=== PATIENT | female | born 1955 | race Caucasian/White ===

== ENCOUNTER 2016-09-08 09:15 | Outpatient (RCR) | payer OTHER | END 2016-09-13 | LOC: M PT 09:15 | PROVIDERS: ATTEND Surgery | DX: Z51.89 Encounter for other specified aftercare (principal); C50.911 Malignant neoplasm of unspecified site of right female breast ==

== ENCOUNTER → 2016-11-29 | Outpatient (CLI) | payer OTHER ==
--- NOTE | 2016-11-30 07:50 | RADONC ---
RADIATION ONCOLOGY CONSULTATION NOTE DATE: 11/29/2016 CHART NUMBER: [id number]. DIAGNOSIS: Right breast cancer. STAGE: IIB, [id number] ECOG PERFORMANCE STATUS: Zero. CONSULTATION NOTE: Ms. Carl is a very pleasant, 61-year-old white female with the diagnosis of a stage IIB, [id number] poorly differentiated invasive ductal carcinoma of the right breast who is presenting to us today status post lumpectomy, sentinel lymph node biopsy and chemotherapy consisting docetaxel and cyclophosphamide for consideration of postoperative radiation therapy in attempt to increase the likelihood of achieving local control and cure. HISTORY OF PRESENT ILLNESS: The patient was in her usual state of health until she noticed some dimpling over her right breast. She underwent a mammogram, which was done on 07/04/2016 and showed some architectural distortion in the right retroareolar region in the 12 o'clock position. On 07/22/2016, the patient underwent radiologically guided biopsy of her right breast mass and pathology revealed a moderately differentiated invasive ductal carcinoma. The tumor was estrogen receptor and progesterone receptor positive and HER2 negative. On 08/31/2016, the patient underwent lumpectomy and sentinel lymph node biopsy. Pathology revealed a 3 cm poorly differentiated invasive ductal carcinoma. Multiple areas were positive for lymph vascular invasion. Lymph vascular invasion was actually present at the lateral and superior margins and immediately adjacent to the deep and superficial margins. Two lymph nodes were sampled and one was positive for metastatic disease. The tumor measured 4 mm in greatest extension. There was no extranodal extension seen. Following resection, the patient underwent chemotherapy consisting of docetaxel and cyclophosphamide. Her last chemotherapy was yesterday and she is now presenting for discussion of postoperative radiation therapy. PAST MEDICAL HISTORY: The patient's past medical history is positive for hypertension. ALLERGIES: The patient is allergic to SULFA DRUGS. SOCIAL HISTORY: The patient had smoked one pack of cigarettes per day for 15 years. She quit in 1989. She drinks alcohol socially. FAMILY HISTORY: The patient's family history is positive for an older sister with breast cancer and a grandmother with breast cancer. REVIEW OF SYSTEMS: The patient's review of systems is noncontributory. Denies nausea, vomiting, fevers, chills, night sweats, diplopia, headaches, anxiety or depression, anorexia, weight loss, visual disturbances, chest pain, urinary or bowel difficulties, bone pain, or neurological problems. PHYSICAL EXAMINATION: The patient is a well-developed, well-nourished, 61-year-old female, in no acute distress. HEENT exam is normocephalic, atraumatic. Extraocular movements are intact. There is no palpable cervical, supraclavicular, infraclavicular, axillary, or inguinal lymphadenopathy present. Lungs are clear to auscultation and percussion. Heart has a regular rate and rhythm. Abdomen is benign with no hepatosplenomegaly, masses, or tenderness. Breast examination reveals no masses or discharge bilaterally. Skeletal examination reveals no tenderness to pressure or percussion of the bony skeleton. Extremities reveal no clubbing, cyanosis, or edema. Neurologic exam is grossly intact, as is the remainder of the physical examination. ASSESSMENT: Clearly the patient is a candidate for external beam radiation therapy and I have so informed her. I have discussed with the patient in detail the potential benefits as well as possible acute and chronic sequelae of external beam radiation therapy. We discussed logistics of treatment planning, simulation and subsequent fractionated daily radiation treatments. I have scheduled the patient for the next available simulation slot and radiation treatments will begin subsequently. Thank you for allowing us to participate in the care of this very pleasant woman and if I could be of any further assistance or provide you with any information, please free to contact me anytime. cc: MD Sam Bartlett Jr, MD *Candice Chicas MD
== END ==
LOC: M ONCR 10:03
PROVIDERS: ATTEND Radiology Radiation Oncology
DX: C50.911 Malignant neoplasm of unspecified site of right female breast (principal)

== ENCOUNTER 2016-12-07 08:37 | Outpatient (RCR) | payer OTHER ==
--- NOTE | 2016-12-07 10:42 | RADONC ---
RADIATION ONCOLOGY SIMULATION NOTE DATE: 12/07/2016 CHART NUMBER: [id number] Ms. Carl was taken to the CT scan for CT simulation of her right breast field. CT was accomplished without difficulty or discomfort. Radiation treatment planning is underway and radiation treatments will begin subsequently. An immobilization device was created without difficulty or discomfort. It will be used throughout the course of treatment. I was physically present throughout the course of CT simulation.
== END 2016-12-11 ==
LOC: M ONCR 08:37
PROVIDERS: ATTEND Radiology Radiation Oncology
DX: C50.811 Malignant neoplasm of overlapping sites of right female breast (principal)

== ENCOUNTER → 2016-12-07 | Outpatient (CLI) | payer OTHER | LOC: M RAD 08:31 | PROVIDERS: ATTEND Radiology Radiation Oncology | DX: C50.919 Malignant neoplasm of unspecified site of unspecified female breast (principal) ==

== ENCOUNTER 2016-12-12 14:11 | Outpatient (RCR) | payer OTHER ==
--- NOTE | 2016-12-20 08:32 | RADONC ---
RADIATION ONCOLOGY PROGRESS NOTE: DATE: 12/19/2016 CHART NO: [id number] Ms. Carl is presently at a dose of 540 cGy to her right breast and is tolerating treatments quite well at this point with no complaints related to her radiation therapy. She has no breast or bone pain. REVIEW OF SYSTEMS: The patient's review of systems is noncontributory. Denies nausea, vomiting, fevers, chills, night sweats, diplopia, headaches, anxiety or depression, anorexia, weight loss, visual disturbances, chest pain, urinary or bowel difficulties, bone pain, or neurological problems. PHYSICAL EXAMINATION: The patient's skin is in good condition with no evidence of radiation change present. There is no moist or dry desquamation. The remainder of her physical exam remains unchanged. Ms. Carl is tolerating treatments quite well and radiation will continue as scheduled.
--- NOTE | 2016-12-27 10:14 | RADONC ---
RADIATION ONCOLOGY PROGRESS NOTE DATE: 12/26/2016 CHART NUMBER: [id number] Ms. Carl is presently at a dose of 1440 cGy to her right breast and is tolerating treatments quite well at this point with no complaints related to her radiation therapy. She has had no breast or bone pain. REVIEW OF SYSTEMS: The patient's review of systems is noncontributory. She denies nausea, vomiting, fevers, chills, night sweats, diplopia, headaches, anxiety or depression, anorexia, weight loss, visual disturbances, chest pain, urinary or bowel difficulties, bone pain, or neurological problems. PHYSICAL EXAMINATION: The patient's skin is in excellent condition with no evidence of moist or dry desquamation. The remainder of her physical exam remains unchanged. Ms. Carl is tolerating treatments quite well and radiation will continue as scheduled.
--- NOTE | 2017-01-03 07:54 | RADONC ---
RADIATION ONCOLOGY PROGRESS NOTE: DATE: 01/02/2017 CHART NO: [id number] Ms. Carl is presently at a dose of 2340 cGy to her right breast and is tolerating treatments quite well at this point with no complaints related to her radiation therapy. She is having no breast or bone pain. REVIEW OF SYSTEMS: The patient's review of systems is noncontributory. Denies nausea, vomiting, fevers, chills, night sweats, diplopia, headaches, anxiety or depression, anorexia, weight loss, visual disturbances, chest pain, urinary or bowel difficulties, bone pain, or neurological problems. PHYSICAL EXAMINATION: The patient's skin is in excellent condition with no evidence of moist or dry desquamation. The remainder of her physical exam remains unchanged. Ms. Carl is tolerating treatments quite well and radiation will continue as scheduled.
--- NOTE | 2017-01-11 08:16 | RADONC ---
RADIATION ONCOLOGY PROGRESS NOTE DATE: 01/10/2017 CHART NUMBER: Ms. Carl is presently at a dose of 3240 cGy to her right breast and is tolerating treatments quite well at this point with no complaints related to radiation therapy. She has no breast or bone pain. The patient's review of systems is noncontributory. She denies nausea, vomiting, fevers, chills, night sweats, diplopia, headaches, anxiety or depression, anorexia, weight loss, visual disturbances, chest pain, urinary or bowel difficulties, bone pain, or neurological problems. PHYSICAL EXAMINATION: Patient's skin is in good condition with no evidence of moist or dry desquamation. There is just some minimal erythema present. The remainder of her physical exam is unchanged. Of note, the patient shows a new mole which has appeared in the irradiated field. She does not remember having that prior to radiation. On physical exam, it does not look concerning, but we will continue to follow it. I suspect it is secondary to the radiation.
== END 2017-01-11 ==
LOC: M ONCR 14:11
PROVIDERS: ATTEND Radiology Radiation Oncology
DX: C50.811 Malignant neoplasm of overlapping sites of right female breast (principal)

== ENCOUNTER 2017-01-12 11:05 | Outpatient (RCR) | payer OTHER ==
--- NOTE | 2017-01-18 09:49 | RADONC ---
RADIATION ONCOLOGY PROGRESS NOTE DATE: 01/17/2017 CHART NUMBER: [id number] Ms. Carl is presently at a dose of 4140 cGy to her right breast and is tolerating treatments quite well at this point with no complaints related to her radiation therapy. She is having no significant breast or bone pain. REVIEW OF SYSTEMS: The patient's review of systems is noncontributory. She denies nausea, vomiting, fevers, chills, night sweats, diplopia, headaches, anxiety or depression, anorexia, weight loss, visual disturbances, chest pain, urinary or bowel difficulties, bone pain, or neurological problems. PHYSICAL EXAMINATION: The patient's skin is in excellent condition with no evidence of moist or dry desquamation. The remainder of her physical exam remains unchanged. Ms. Carl is tolerating treatments quite well and radiation will continue as scheduled.
--- NOTE | 2017-01-18 09:54 | RADONC ---
RADIATION ONCOLOGY SIMULATION NOTE DATE: 01/17/2017 CHART NUMBER: [id number] Ms. Carl was taken to the linear accelerator for clinical setup of her electron beam boost field. Setup was accomplished without difficulty or discomfort. Radiation treatment planning is underway and radiation treatments will begin subsequently. An immobilization device will be used throughout the course of treatment. I was physically present throughout the course of electron setup simulation.
--- NOTE | 2017-01-24 10:03 | RADONC ---
RADIATION ONCOLOGY PROGRESS NOTE DATE: 01/23/2017 CHART NUMBER: [id number] Ms. Carl is presently at a dose of 4860 centigrade to her right breast and is tolerating treatments quite well at this point with no complaints related to her radiation therapy. She is having no breast or bone pain. REVIEW OF SYSTEMS: The patient's review of systems is noncontributory. Denies nausea, vomiting, fevers, chills, night sweats, diplopia, headaches, anxiety or depression, anorexia, weight loss, visual disturbances, chest pain, urinary or bowel difficulties, bone pain, or neurological problems. PHYSICAL EXAMINATION: The patient's skin is in good condition with no moist or dry desquamation. The remainder of her physical exam remains unchanged. Ms. Carl is tolerating treatments quite well and radiation will continue as scheduled.
--- NOTE | 2017-01-31 08:48 | RADONC ---
RADIATION ONCOLOGY PROGRESS NOTE: DATE: 01/30/2017 CHART NUMBER: [id number] Ms Carl is presently at a dose of 5860 cGy to her right breast primary site boost and is tolerating treatments quite well at this point with no complaints related to her radiation therapy. She is having no breast or bone pain. REVIEW OF SYSTEMS: The patient's review of systems is noncontributory. Denies nausea, vomiting, fevers, chills, night sweats, diplopia, headaches, anxiety or depression, anorexia, weight loss, visual disturbances, chest pain, urinary or bowel difficulties, bone pain, or neurological problems. PHYSICAL EXAMINATION: The patient's skin is in good condition with no evidence of moist or dry desquamation. The remainder of her physical exam remains unchanged. Ms. Carl is tolerating treatments quite well and radiation will continue as scheduled.
--- NOTE | 2017-02-01 10:16 | RADONC ---
RADIATION ONCOLOGY TREATMENT SUMMARY: DATE: 01/31/2017 CHART NUMBER: [id number]. DIAGNOSIS: Right breast cancer. STAGE: IIIB, [id number]. ECOG PERFORMANCE STATUS: Zero. TREATMENT SUMMARY: Ms. Carl is a 61-year-old white female with the diagnosis of a stage IIB, [id number] poorly differentiated invasive ductal carcinoma of the right breast who presented to us status post lumpectomy, sentinel lymph node biopsy and chemotherapy consisting of docetaxel and cyclophosphamide for consideration of postoperative radiation therapy for conservative breast management. We treated the patient to the right breast for a total dose of 4860 cGy delivered in 27 fractions of 180 cGy each over 39 elapsed days, from 12/15/2016 through 01/23/2017. The patient's right breast was treated on a linear accelerator utilizing a 6MV photon beam via medial and lateral tangential yanes utilizing a 3-D technique. Following completion of 4860 cGy of the entire right breast, the primary site was boosted for an additional 1200 cGy delivered in 6 fractions of 200 cGy each, from 01/24/2017 through 01/31/2017. The primary site boost was treated on a linear accelerator utilizing a 12MEV electron beam prescribed to the 90% isodose line via non phos technique. This brought the primary site to a total dose of 6060 cGy delivered in 33 fractions over 47 elapsed days, from 12/15/2016 through 01/31/2017. Ms. Carl tolerated her treatments quite well and was able to complete therapy as prescribed without interruption. I have scheduled the patient to see me again in 1 month for further followup. She will also continue to be followed by her other physicians as well. Thank you for allowing us to participate in the care of this very pleasant woman. If I could be of any further assistance or provide you any information, please free to contact me anytime. As always, warm regards. cc: MD Sam Bartlett Jr, MD Kara Kort, MD
== END 2017-02-10 ==
LOC: M ONCR 11:05
PROVIDERS: ATTEND Radiology Radiation Oncology
DX: C50.811 Malignant neoplasm of overlapping sites of right female breast (principal)

== ENCOUNTER → 2017-03-01 | Outpatient (CLI) | payer OTHER ==
--- NOTE | 2017-03-01 09:25 | RADONC ---
RADIATION ONCOLOGY FOLLOWUP NOTE: DATE: 03/01/2017 CHART NUMBER: [id number] DIAGNOSIS: Right breast cancer. STAGE: III B, [id number] ECOG PERFORMANCE STATUS: 0 Ms. Carl is a very pleasant 61-year-old white female with the diagnosis of a stage III B, [id number] poorly differentiated invasive ductal carcinoma of the right breast who is presenting to us today for routine followup visit 1 month post completion of external beam radiation therapy. The patient presents today reporting that she is doing quite well with no complaints at this time related to her radiation therapy or disease. She has no breast or bone pain. REVIEW OF SYSTEMS: The patient's review of systems is noncontributory. She denies nausea, vomiting, fevers, chills, night sweats, diplopia, headaches, anxiety or depression, anorexia, weight loss, visual disturbances, chest pain, urinary or bowel difficulties, bone pain, or neurological problems. PHYSICAL EXAMINATION: The patient is a well-developed, well-nourished female in no acute distress. HEENT exam is normocephalic, atraumatic. Extraocular movements are intact. There is no palpable cervical, supraclavicular, infraclavicular, axillary, or inguinal lymphadenopathy present. Lungs are clear to auscultation and percussion. Heart has a regular rate and rhythm. Abdomen is benign with no hepatosplenomegaly, masses, or tenderness. Breast examination reveals no masses or discharge bilaterally. Skeletal examination reveals no tenderness to pressure or percussion of the bony skeleton. Extremities reveal no clubbing, cyanosis, or edema. Neurologic exam is grossly intact, as is the remainder of the physical examination. ASSESSMENT: The patient is clinically MAICOL at this time and will be seen by us again in 6 months for further followup. She will also continue to be followed by her other physicians as well. cc: MD Sam Bartlett Jr, MD Kara Kort, MD
== END ==
LOC: M ONCR 09:00
PROVIDERS: ATTEND Radiology Radiation Oncology
DX: C50.811 Malignant neoplasm of overlapping sites of right female breast (principal)

== ENCOUNTER → 2017-08-23 | Outpatient (CLI) | payer OTHER | LOC: M ONCR 09:16 | DX: C50.811 Malignant neoplasm of overlapping sites of right female breast (principal) ==

== ENCOUNTER → 2017-09-08 | Outpatient (REF) | payer OTHER | LOC: M SFHCWAGY 08:40 | DX: Z12.4 Encounter for screening for malignant neoplasm of cervix (principal); N95.2 Postmenopausal atrophic vaginitis | CPT/HCPCS: G0123 ==

== ENCOUNTER → 2018-02-28 | Outpatient (CLI) | payer OTHER | LOC: M ONCR 09:28 | DX: C50.811 Malignant neoplasm of overlapping sites of right female breast (principal) ==

== ENCOUNTER → 2018-09-25 | Outpatient (CLI) | payer OTHER ==
[~2018-09-25] MED LIST: CALCTAB44 PO; HYDR25TAB PO; LETR2.5T2 PO; TURM500C PO
--- NOTE | 2018-10-01 10:51 | SLEEPCENT ---
DATE OF PROCEDURE: 09/25/2018 ORDERED BY: Eliazar Gandara Nocturnal polysomnography was performed for the titration of pressure therapy in this patient with obstructive sleep apnea syndrome and apnea-hypopnea of 23.5. For testing, a ResMed AirFit N20 nasal mask of small size was used and 4 cm of water pressure were applied to the circuit and the lights were extinguished. 7 hours and 29 minutes of data were reviewed. There were 354 minutes of sleep identified. Sleep latency was prolonged at 28 minutes. Rapid eye movement (REM) latency was prolonged at 160 minutes. Sleep architecture improved with optimal pressure therapy. Overall sleep efficiency was 79%. The patient's electrocardiogram showed a sinus rhythm with an average heart rate of 66 beats per minute. Electroencephalogram (EEG) showed normal waveforms for awake and sleep. Respiratory events were fully palliated with C-PAP at a pressure of +9. The remaining measures of sleep physiology were normal. IMPRESSION: Obstructive sleep apnea syndrome (G47.33). RECOMMENDATION: Nightly use of pressure therapy at 9 cm of water.
== END ==
LOC: M SLEEP 19:41
PROVIDERS: ATTEND Physician Assistant
DX: G47.33 Obstructive sleep apnea (adult) (pediatric) (principal)

== ENCOUNTER 2019-08-19 09:44 | Day surgery (SDC) | payer OTHER ==
[~2019-08-19] VITALS: Ht 175.3 cm; Wt 75.3 kg
[~2019-08-19 09:44] MED LIST changes: +CALC1TAB82 PO; -CALCTAB44 PO; +NS 1,000 ML IV ONE
[2019-08-19] MEDS ORDERED: LIDOCAINE 2% INJ 100 MG/5 ML SDV (FOR ANES.) As Ordered ONE (10:57)
[2019-08-19] MEDS ORDERED: PROPOFOL 200 MG/20 ML VIAL As Ordered ONE ×2 (10:57→11:42)
--- NOTE | 2019-08-19 11:17 | ROOR ---
Patient Name: Kinza Carl Procedure Date: 08/19/2019 10:57 AM Date of : 1955 Age: 64 Room: [facility] Gender: Female Note Status: Finalized Procedure: Total Colonoscopy to Cecum Indications: Screening for colorectal malignant neoplasm Providers: Jayme Rubi MD Referring MD: NERI WEINBERG JR, MD Requesting Provider: Medicines: Monitored Anesthesia Care Complications: No immediate complications. Procedure: Pre-Anesthesia Assessment: - The heart rate, respiratory rate, oxygen saturations, blood pressure, adequacy of pulmonary ventilation, and response to care were monitored throughout the procedure. The Colonoscope was introduced through the anus and advanced to the cecum, identified by appendiceal orifice and ileocecal valve. The colonoscopy was performed without difficulty. The patient tolerated the procedure well. The quality of the bowel preparation was excellent. Findings: The perianal and digital rectal examinations were normal. Non-bleeding internal hemorrhoids were found during retroflexion. The hemorrhoids were small and Grade I (internal hemorrhoids that do not prolapse). Multiple small and large-mouthed diverticula were found in the recto-sigmoid colon, sigmoid colon and descending colon. The exam was otherwise without abnormality on direct and retroflexion views. The exam was otherwise without abnormality. Impression: - Non-bleeding internal hemorrhoids. - Diverticulosis in the recto-sigmoid colon, in the sigmoid colon and in the descending colon. - The examination was otherwise normal on direct and retroflexion views. - The examination was otherwise normal. - No specimens collected. - The exam was otherwise normal to the cecum. Recommendation: - Patient has a contact number available for emergencies. The signs and symptoms of potential delayed complications were discussed with the patient. Return to normal activities tomorrow. Written discharge instructions were provided to the patient. - High fiber diet. - Discharge patient to home. - Continue present medications. - Repeat colonoscopy in 10 years for screening purposes. - Return to referring physician. - The findings and recommendations were discussed with the patient's family. Jayme Rubi MD Jayme Rubi MD 08/19/2019 11:17:31 AM Electronically signed by Jayme Rubi MD Number of Addenda: 0 Note Initiated On: 08/19/2019 10:57 AM Estimated Blood Loss: Estimated blood loss: none.
[2019-08-19 11:35] VITALS: BP 142/82
== END 2019-08-19 11:51 | disposition home or self-care (01) ==
LOC: M OPP 09:44
PROVIDERS: ATTEND Internal Medicine Gastroenterology
DX: Z12.11 Encounter for screening for malignant neoplasm of colon (principal); K64.0 First degree hemorrhoids; K57.30 Diverticulosis of large intestine without perforation or abscess without bleeding; E73.9 Lactose intolerance, unspecified; Z79.899 Other long term (current) drug therapy; Z88.2 Allergy status to sulfonamides

== ENCOUNTER → 2021-01-05 | Outpatient (REF) | payer MEDICARE, OTHER ==
[~2021-01-05] MED LIST changes: +CALC-234 PO; -CALC1TAB82 PO; +FOLGTAB5 PO; +HYDR-3490 PO; -HYDR25TAB PO; +LOSA25TA14 PO; -NS 1,000 ML IV ONE
== END ==
LOC: M SFHCWAGY 13:16
PROVIDERS: ATTEND Advanced Practice Midwife
DX: Z12.4 Encounter for screening for malignant neoplasm of cervix (principal); N95.2 Postmenopausal atrophic vaginitis
CPT/HCPCS: G0101; G0123

== ENCOUNTER → 2021-05-26 | Outpatient (CLI) | payer MEDICARE, OTHER ==
--- NOTE | 2021-05-26 13:10 | DEXAMM ---
INDICATION: OSTEOPOROSIS OSTEOPENIA. COMPARISON: 05/09/2019 as well as other prior exams. TECHNIQUE: Bone density was measured using dual-energy x-ray absorptiometry (DEXA). FINDINGS: AP SPINE L1-L4 BMD 1.177 g/cm2 Young Adult T-Score -0.1 Age Matched Z-Score 1.5. LT FEMUR, TOTAL BMD 1.230 g/cm2 Young Adult T-Score 1.8 Age Matched Z-Score 3.0. LT NECK BMD 1.388 g/cm2 Young Adult T-Score 2.5 Age Matched Z-Score 4.0. RT FEMUR, TOTAL BMD 1.190 g/cm2 Young Adult T-Score 1.4 Age Matched Z-Score 2.7. RT NECK BMD 1.144 g/cm2 Young Adult T-Score 0.8 Age Matched Z-Score 2.3. IMPRESSION: There is normal bone density of the spine. There is normal bone density of the left hip. There is normal bone density of the right hip. The density of the spine has decreased 12.0% since the initial exam on 12/16/2004. The density of the spine decreased 2.4% since most recent exam on 05/09/2019. The density of the left hip has increased 0.7% since initial exam on 12/16/2004. The density of the left hip has increased 3.5% since most recent exam on 05/09/2019. The density of the right hip has decreased 0.1% since the initial exam on 12/16/2004. The density of the right hip has increased 3.2% since the most recent exam on 05/09/2019. FOLLOW-UP: Recommendation for the next bone density exam: 5 years. <Electronically signed by Angel Darnell > 05/26/21 [id number]
== END ==
LOC: M WHC 08:53
PROVIDERS: ATTEND Internal Medicine
DX: Z13.820 Encounter for screening for osteoporosis (principal); M81.0 Age-related osteoporosis without current pathological fracture; M85.9 Disorder of bone density and structure, unspecified

== ENCOUNTER → 2021-12-06 | Outpatient (CLI) | payer MEDICARE, OTHER ==
[~2021-12-06] MED LIST changes: +CALC-190 PO; +LOSA25TA13 PO; -LOSA25TA14 PO
== END ==
LOC: M PLAIMG 10:38
PROVIDERS: ATTEND Nurse Practitioner Adult Health
DX: M25.551 Pain in right hip (principal)